=== PATIENT | male | born 1955 | race Caucasian/White ===

== ENCOUNTER → 2019-04-13 | Outpatient (REF) | payer OTHER | LOC: M SFHCPLAZ 19:16 | PROVIDERS: ATTEND Dermatology | DX: C44.229 Squamous cell carcinoma of skin of left ear and external auricular canal (principal); D22.39 Melanocytic nevi of other parts of face; D10.39 Benign neoplasm of other parts of mouth ==

== ENCOUNTER → 2019-08-11 | Outpatient (REF) | payer OTHER | LOC: M SFHCPLAZ 10:25 | PROVIDERS: ATTEND Dermatology | DX: L85.9 Epidermal thickening, unspecified (principal) ==